=== PATIENT | female | born 1955 | race Caucasian/White ===

== ENCOUNTER 2016-07-19 11:53 | Emergency (ER) | payer BC, OTHER ==
--- NOTE | 2016-07-19 12:48 | Emergency Department Report ---
Chief Complaint: High BP Stated Complaint: ELEVATED B/P Time Seen by Provider: 07/19/16 12:41 - HPI History of Present Illness: 60-year-old female presents today with elevated blood pressure readings. Positive for history of hypertension. Patient states that she was out of her medication for 2 days and was seen at a clinic yesterday. Patient was put back on lisinopril 20 mg and amlodipine 5 mg. Patient took a dose last night and one this morning. Denies chest pain, shortness of breath, abdominal pain, headache, dizziness, visual changes. - ROS Review of Systems: Per HPI - Exam Vital Signs: Vital Signs 07/19/16 12:01 Temperature 99.4 F Pulse Rate 98 H Respiratory 18 Rate Blood Pressure 189/108 O2 Sat by Pulse 99 Oximetry Physical Exam: General: 60-year-old female in no acute distress. Well-developed, well- nourished. CV: Regular rate and rhythm. Lungs: Clear to auscultation bilaterally. MSE screening note: Focused history and physical exam performed. Due to findings the following was ordered: ED Disposition for MSE Condition: Stable
[2016-07-19 13:34] LABS: Basophils % (Auto) 0.4 % (0.0-1.8); Eosinophils % (Auto) 0.9 % (0.0-4.3); Hematocrit 38.9 % (30.3-42.9); Hemoglobin 13.1 gm/dl (10.1-14.3); Mean Corpuscular HGB Conc 34 % (30-34); Mean Corpuscular Hemoglobin 30 pg (28-32); Mean Corpuscular Volume 88 fl (79-97); Platelet Count 326 K/mm3 (140-440); Red Blood Count 4.42 M/mm3 (3.65-5.03); Red Cell Distribution Width 12.7 % (13.2-15.2)
[2016-07-19 13:50] LABS: BUN/Creatinine Ratio 18.33
[2016-07-19 14:16] LABS: Anion Gap 16 mmol/L; Blood Urea Nitrogen 11 mg/dL (7-17); Calcium 9.2 mg/dL (8.4-10.2); Carbon Dioxide 27 mmol/L (22-30); Chloride 102.1 mmol/L (98-107); Glucose 103 mg/dL (65-100); Potassium 4.1 mmol/L (3.6-5.0); Sodium 141 mmol/L (137-145)
[2016-07-20] MEDS ORDERED: CATAPRES ONE (01:00)
[2016-07-20] MEDS ORDERED: CATAPRES PO ONE (01:07)
[2016-07-20 02:20] VITALS: BP 149/95
--- NOTE | 2016-07-20 02:25 | Emergency Department Report ---
HPI - General Chief Complaint: High BP Time Seen by Provider: 07/19/16 12:41 - HPI HPI: This is a 60-year-old female who presents to the emergency department with a few days of elevated blood pressure. The patient says she was out of her medication for 2 days but got a new prescription yesterday at a local clinic and has been taking it since. She says she has checked her blood pressure at home multiple times and it continues to be elevated reaching as close as a systolic of 200. This concerned her so she came in to be seen. She denies any headache, chest pain, shortness of breath, vision change or any neurological deficits. She denies any past medical history besides hypertension. She takes lisinopril 20 mg and amlodipine 5 mg each day. She denies tobacco abuse. She denies any excessive caffeine use or increased salt intake. No history of OH, CVA, PE/DVT. She does not currently have a primary care doctor if she just switched insurance. She has the name of a new physician but has not made an appointment. ED Review of Systems ROS: Stated complaint: ELEVATED B/P Other details as noted in HPI Comment: All other systems reviewed and negative Constitutional: denies: chills, fever Eyes: denies: eye pain, eye discharge, vision change ENT: denies: ear pain, throat pain Respiratory: denies: cough, shortness of breath, wheezing Cardiovascular: denies: chest pain, palpitations Gastrointestinal: denies: abdominal pain, nausea, diarrhea Genitourinary: denies: urgency, dysuria, discharge Musculoskeletal: denies: back pain, joint swelling, arthralgia Skin: denies: rash, lesions Neurological: denies: headache, weakness, paresthesias Physical Exam - Physical Exam Vital Signs: Vital Signs 07/19/16 07/19/16 07/20/16 12:01 22:56 01:08 Temperature 99.4 F 98.5 F Pulse Rate 98 H 85 85 Respiratory 18 18 Rate Blood Pressure 189/108 206/116 206/116 Blood Pressure [Left] O2 Sat by Pulse 99 100 Oximetry 07/20/16 07/20/16 01:46 02:19 Temperature Pulse Rate 84 85 Respiratory 16 18 Rate Blood Pressure Blood Pressure 159/101 149/95 [Left] O2 Sat by Pulse 95 100 Oximetry Physical Exam: GENERAL: The patient is well-developed well-nourished. HEENT: Normocephalic. Atraumatic. Extraocular motions are intact. Patient has moist mucous membranes. Pupils equal reactive to light bilaterally. NECK: Supple. Trachea is midline. CHEST/LUNGS: Clear to auscultation. There is no respiratory distress noted. HEART/CARDIOVASCULAR: Regular. There is no tachycardia. There is no gallop rub or murmur. ABDOMEN: Abdomen is soft, nontender. Patient has normal bowel sounds. There is no abdominal distention. SKIN: There is no rash. There is no edema. There is no diaphoresis. NEURO: The patient is awake, alert, and oriented. The patient is cooperative. The patient has no focal neurologic deficits. The patient has normal speech. MUSCULOSKELETAL: There is no tenderness or deformity. There is no limitation range of motion. There is no evidence of acute injury. ED Course Vital Signs 07/19/16 07/19/16 07/20/16 12:01 22:56 01:08 Temperature 99.4 F 98.5 F Pulse Rate 98 H 85 85 Respiratory 18 18 Rate Blood Pressure 189/108 206/116 206/116 Blood Pressure [Left] O2 Sat by Pulse 99 100 Oximetry 07/20/16 07/20/16 01:46 02:19 Temperature Pulse Rate 84 85 Respiratory 16 18 Rate Blood Pressure Blood Pressure 159/101 149/95 [Left] O2 Sat by Pulse 95 100 Oximetry ED Medical Decision Making - Lab Data Result diagrams: 07/19/16 13:18 07/19/16 13:18 - EKG Data -: EKG Interpreted by Pa EKG shows normal: sinus rhythm, axis, intervals, QRS complexes (LVH), ST-T waves Rate: normal - EKG Data When compared to previous EKG there are: previous EKG unavailable - Medical Decision Making This is a 60-year-old female presents to the emergency department with elevated blood pressure. Patient was out of her blood pressure medications for a few days and just restarted them yesterday. She presented with a systolic of close to 200. Her blood pressure has come down to around 149/94 with a 0.2 mg dose of Catapres. Patient has no physical complaints including no chest pain or shortness of breath or headache or vision change. She has insurance and has the name of a physician for follow-up. She is only on half the maximum dose of both the lisinopril and Norvasc. I do not believe that the patient requires a third antihypertensives at this time. We discussed diet and exercise. She will keep a blood pressure log. She will make an appointment to follow-up with her primary care doctor to establish care. If she does all of these things and continues to have very elevated blood pressure, she will return to the emergency department for further evaluation and treatment. EKG does not show any signs of ST elevation OH, ischemia or dysrhythmia. Patient understands and agrees the plan. - Differential Diagnosis hypertensive urgency, accelerated hypertension, renal vascular hypertension Critical Care Time: No Critical care attestation.: If time is entered above; I have spent that time in minutes in the direct care of this critically ill patient, excluding procedure time. ED Disposition Clinical Impression: Hypertensive urgency Disposition: DISCHARGED TO HOME OR SELFCARE Is pt being admited?: No Does the pt Need Aspirin: No Condition: Good Instructions: Hypertension (ED) Additional Instructions: Please follow-up with a primary care doctor in the next few days if possible. Return to the emergency department with any worsening of your symptoms or any acute distress or if he cannot control your blood pressure. Keep a blood pressure log. Try to stay away from foods that are high in salt and caffeinated products. Try to get some exercise. Make sure to get an appropriate amount of sleep. Referrals: PRIMARY MD DEENA [Primary Care Provider] - 3-5 Days ENE LYONS MD [Staff Physician] - 3-5 Days WES ALVARADO MD [Staff Physician] - 3-5 Days [facility] [Outside] - 3-5 Days Time of Disposition: 02:26
== END 2016-07-20 03:00 | disposition home or self-care (01) ==
LOC: ED 11:53
DX: I10 Essential (primary) hypertension (principal)
CPT/HCPCS: 36415; 80048; 85025; 93005; 93010; 99283